=== PATIENT | female | born 1990 | race Caucasian/White ===

== ENCOUNTER 2016-11-09 17:10 | Emergency (ER) | payer SELFPAY ==
[~2016-11-09] VITALS: Ht 162.6 cm; Wt 65.0 kg
[2016-11-09 17:21] VITALS: BP 136/78; PULSE 143; RESP 16; TEMP 98.5; O2SAT 96
[2016-11-09 17:36] VITALS: BP 129/84; PULSE 133; RESP 18; O2SAT 97
[2016-11-09] MEDS ORDERED: SODIUM CHLOR 0.9% 1000 ML INJ 1,000 ML IV ONE (17:45)
[2016-11-09] MEDS ORDERED: MORPHINE SULFATE 4 MG/ML INJ IV PUSH ONE (17:45)
[2016-11-09] MEDS ORDERED: ONDANSETRON HCL 4 MG/2 ML VIAL IV ONE (17:45)
[2016-11-09 17:50] VITALS: RESP 18; O2SAT 99
--- NOTE | 2016-11-09 17:57 | PD ---
HPI Chief Complaint: Oral / Dental Pain or Problem Time Seen by Provider: 17:27 Travel History International Travel<30 days: No Contact w/Intl Traveler<30days: No Traveled to known affect area: No History of Present Illness HPI To 26 year-old woman who presents to the emergency department complaining of left lower face pain. States she has an impacted wisdom tooth area that bothers her intermittently. She states that over the past week or so it's been progressively more painful and she's had more pain and swelling over the past day or so. In the past day or so she states is gotten significantly worse and she's also had chills and sweats, as well as pain in her tonsils and difficulty swallowing. She is not otherwise pretty healthy woman. She's had history of depression and takes medicines for that. 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 She was taken to the hospital with widespread ecchymosis and bruising and then found have a platelet count less than 2000. She received 2 rounds of IVIG and was discharged on prednisone. She's done very well since and hasn't had any trouble. History Past Medical History Narrative Medical Depression ITP LMP: NEXPLANON Social History Alcohol Use: No Tobacco Use: No Allergies-Medications (Allergen,Severity, Reaction): Coded Allergies: No Known Allergies (Unverified , 11/09/16) Review of Systems Except as stated in HPI: all other systems reviewed are Neg Physical Exam Narrative GENERAL: Well-appearing 26 year-old woman, no acute distress. SKIN: Warm and dry. HEAD: Atraumatic. Normocephalic. HEENT: She has a half protruded somewhat impacted wisdom tooth on the bottom left side. There is no obvious purulent drainage. There is tenderness to percussion on the left third mandibular molar. There is some tenderness on the angle of the mandible as well as just below the mandible. There is no submental induration or fullness. There is no obvious adenopathy. Tonsils are little bit enlarged and maybe some exudates on the left tonsils. NECK: Trachea midline. No JVD. CARDIOVASCULAR: Heart rate rapid but regular. Precordium does seem a little bit hyperdynamic. No murmurs. RESPIRATORY: No accessory muscle use. Clear to auscultation. Breath sounds equal bilaterally. GASTROINTESTINAL: Abdomen soft, non-tender, nondistended. Hepatic and splenic margins not palpable. MUSCULOSKELETAL: No obvious deformities. Data Data Last Documented VS Vital Signs Date Time Temp Pulse Resp B/P Pulse Ox O2 Delivery O2 Flow Rate FiO2 11/09/16 18:32 99 18 129/87 98 3 17:50 Room Air 11/09/16 17:21 98.5 Orders Electrocardiogram (11/09/16 17:39) Complete Blood Count With Diff (11/09/16 17:39) Comprehensive Metabolic Panel (11/09/16 17:39) Lactic Acid Sepsis Protocol (11/09/16 17:39) Blood Culture (11/09/16 17:39) Blood Glucose (11/09/16 17:39) Ecg Monitoring (11/09/16 17:39) Iv Access Insert/Monitor (11/09/16 17:39) Oximetry (11/09/16 17:39) Oxygen Administration (11/09/16 17:39) Sodium Chlor 0.9% 1000 Ml Inj (Ns 1000 M (11/09/16 17:45) Morphine Inj (Morphine Inj) (11/09/16 17:45) Ondansetron Inj (Zofran Inj) (11/09/16 17:45) Labs Laboratory Tests Test 11/09/16 17:47 White Blood Count 14.8 TH/MM3 Red Blood Count 4.37 MIL/MM3 Hemoglobin 14.0 GM/DL Hematocrit 41.4 % Mean Corpuscular Volume 94.6 FL Mean Corpuscular Hemoglobin 31.9 PG Mean Corpuscular Hemoglobin 33.7 % Concent Red Cell Distribution Width 14.3 % Platelet Count 300 TH/MM3 Mean Platelet Volume 8.5 FL Neutrophils (%) (Auto) 87.3 % Lymphocytes (%) (Auto) 9.7 % Monocytes (%) (Auto) 2.6 % Eosinophils (%) (Auto) 0.0 % Basophils (%) (Auto) 0.4 % Neutrophils # (Auto) 13.0 TH/MM3 Lymphocytes # (Auto) 1.4 TH/MM3 Monocytes # (Auto) 0.4 TH/MM3 Eosinophils # (Auto) 0.0 TH/MM3 Basophils # (Auto) 0.1 TH/MM3 CBC Comment DIFF FINAL Differential Comment Sodium Level 144 MEQ/L Potassium Level 4.2 MEQ/L Chloride Level 107 MEQ/L Carbon Dioxide Level 28.9 MEQ/L Anion Gap 8 MEQ/L Blood Urea Nitrogen 14 MG/DL Creatinine 0.83 MG/DL Estimat Glomerular Filtration 84 ML/MIN Rate Random Glucose 107 MG/DL Lactic Acid Level 1.4 mmol/L Calcium Level 9.1 MG/DL Total Bilirubin 0.2 MG/DL Aspartate Amino Transf 31 U/L (AST/SGOT) Alanine Aminotransferase 77 U/L (ALT/SGPT) Alkaline Phosphatase 62 U/L Total Protein 8.6 GM/DL Albumin 4.2 GM/DL [facility] Medical Decision Making Medical Screen Exam Complete: Yes Emergency Medical Condition: Yes Interpretation(s) My review of EKG: Sinus tachycardia rate of 120, normal axis, normal intervals, no ischemia. LABS: CBC remarkable for mild leukocytosis. CMP is unremarkable Lactate 1.4 Differential Diagnosis Pain, odontogenic infection, sepsis, anemia, other Narrative Course Medical decision making INITIAL: Is a 26 old woman who presents emergency department complaining of pain and tenderness and infected left third molar. Of note she has a pretty pronounced tachycardia. She has chills but no definite fevers. Given her recent history of ITP, and rapid heart rate, we'll check labs, IV fluids, pain medicine, reassess. FINAL: Heart rate improved with pain control, IV fluids. Labs unremarkable. Recommend pain medicine, antibiotics. Diagnosis Primary Impression: Odontogenic infection of jaw Additional Instructions: Take antibiotics as prescribed. Take pain medicine as needed. Follow-up with a dentist at first available appointment. Return to the emergency department for any new or worsening symptoms. Med/Other Pt SpecificInfo: Prescription(s) given Scripts Clindamycin 300 Mg [id number] Mg PO Q6H 7 Days Prov:Juanpablo Breen MD 11/09/16 Hydrocodone-Acetaminophen (Lortab)5-325 Mg Tab1-2 Tab PO Q6H PRN (PAIN) #12 TAB Prov:Juanpablo Breen MD 11/09/16 Naproxen (Naprosyn)250 Mg [id number] Mg PO BID #14 TAB Prov:Juanpablo Breen MD 11/09/16 Disposition: 01 DISCHARGE HOME Condition: Stable Juanpablo Breen MD Nov 09, 2016 17:57
[2016-11-09 18:06] LABS: BASOPHIL # 0.1 TH/MM3 (0-0.2); BASOPHIL % 0.4 % (0.0-2.0); HEMATOCRIT 41.4 % (35.0-46.0); HEMO FLAGS DIFF FINAL; LYMPH % 9.7 % (9.0-44.0); LYMPHOCYTE # 1.4 TH/MM3 (1.0-4.8); MEAN CELL VOLUME 94.6 FL (80.0-100.0); MEAN CORPUSCULAR HEMOGLOBIN 31.9 PG (27.0-34.0); MEAN CORPUSCULAR HGB CONC 33.7 % (32.0-36.0); MONO % 2.6 % (0.0-8.0); NEUT % 87.3 % (16.0-70.0); PLATELET COUNT 300 TH/MM3 (150-450); RED BLOOD COUNT 4.37 MIL/MM3 (4.00-5.30); RED CELL DISTRIBUTION WIDTH 14.3 % (11.6-17.2); WHITE BLOOD COUNT 14.8 TH/MM3 (4.0-11.0)
[2016-11-09 18:30] LABS: ALT (GPT) 77 U/L (10-53); ANION GAP 8 MEQ/L (5-15); AST (GOT) 31 U/L (15-37); BICARBONATE 28.9 MEQ/L (21.0-32.0); BLOOD UREA NITROGEN 14 MG/DL (7-18); CHLORIDE 107 MEQ/L (98-107); GLOMERULAR FILTRATION RATE 84 ML/MIN (>89); POTASSIUM 4.2 MEQ/L (3.5-5.1); SODIUM (NA) 144 MEQ/L (136-145)
[2016-11-09 18:32] VITALS: BP 129/87; PULSE 99; RESP 18; O2SAT 98
[2016-11-09 18:33] LABS: ALKALINE PHOSPHATASE 62 U/L (45-117); TOTAL BILIRUBIN ADULT 0.2 MG/DL (0.2-1.0)
[2016-11-09] MEDS ORDERED: HYDR-3533 PO (18:37)
[2016-11-09] MEDS ORDERED: NAPR250T57 PO (18:37)
[2016-11-09] MEDS ORDERED: CLIN1CAP6 PO (18:37)
[2016-11-09] MEDS ORDERED: CLINDAMYCIN INJ 600 MG in SODIUM CHLORIDE 0.9% INJ 100 ML IV ONE (18:45)
[2016-11-09 19:03] VITALS: BP_SYST 118; BP_SYST 129; BP_DIAS 67; BP_DIAS 84; PULSE 97; RESP 18; O2SAT 98
--- NOTE | 2016-11-10 10:10 | EKG ---
Date Performed: 11/09/2016 Time Performed: 17:51:44 PTAGE: 26 years EKG: SINUS TACHYCARDIA NONSPECIFIC T-WAVE ABNORMALITY ABNORMAL RHYTHM ECG NO PREVIOUS TRACING DOCTOR: Luis Johnson Interpretating Date/Time 11/10/2016 10:04:44
== END 2016-11-09 19:42 | disposition home or self-care (01) ==
LOC: NEPC 17:10
DX: M27.2 Inflammatory conditions of jaws (principal); R00.0 Tachycardia, unspecified
CPT/HCPCS: 80053; 83605; 85025; 87040; 93005; 96361; 96365; 96375; 99285; J2270; J2405; J7030